=== PATIENT | female | born 1965 | race Asian ===

== ENCOUNTER 2016-12-14 14:47 | Emergency (ER) | payer BC, OTHER ==
[~2016-12-14 14:47] MED LIST: Iopamidol 370 76% 125 ML VIAL FS ONE
[2016-12-14 14:57] LABS: #Lymphocytes 2.9 thou/uL (1.20-3.40); #Monocytes 0.7 thou/uL (0.11-0.59); #Neutrophils 7.9 thou/uL (1.40-6.50); %Basophils 0.4 % (0.0-1.0); %Eosinophils 0.4 % (0.0-10.0); %Lymphocytes 25.1 % (21.0-51.0); %Monocytes 6.3 % (0.0-10.0); %Neutrophils 67.9 % (42.0-75.0); Hemoglobin 14.5 g/dL (12.0-16.0); Mean Corpuscular HGB CONC 32.9 g/dL (32.0-36.0); Mean Corpuscular Hemoglobin 29.8 pg (27.0-31.0); Mean Corpuscular Volume 90.5 fl (81.0-99.0); Mean Platelet Volume 7.6 fL (7.4-10.4); Platelet Count 312 thou/uL (130-400); RBC Distribution Width 11.4 % (11.5-14.5); Red Blood Cell (RBC) Count 4.88 mill/uL (4.20-5.40); White Blood Cell (WBC) Count 11.7 thou/uL (4.8-10.8)
[2016-12-14 15:00] LABS: PTT 31.5 SEC (22.9-36.1); Prothrombin Time 13.6 SEC (12.0-14.7)
[2016-12-14 15:11] LABS: ALT (SGPT) 60 U/L (8-55); AST (SGOT) 70 U/L (5-34); Albumin 4.1 g/dL (3.5-5.0); Alkaline Phosphatase 61 U/L (40-150); Anion Gap 12 mmol/L (10-20); BUN (Urea Nitrogen) 22 mg/dL (9.8-20.1); Bilirubin, Total 0.3 mg/dL (0.2-1.2); Calc. Creatinine Clearance 0 mL/min (70-130); Calcium 8.9 mg/dL (7.8-10.44); Carbon Dioxide 25 mmol/L (22-29); Chloride 106 mmol/L (98-107); Estimated GFR-MDRD 88; Globulin 3.7 g/dL (2.4-3.5); Glucose 120 mg/dL (70-105); Potassium 3.8 mmol/L (3.5-5.1); Protein, Total 7.8 g/dL (6.0-8.3); Sodium 139 mmol/L (136-145)
[2016-12-14] MEDS ORDERED: Diazepam 5 MG TAB ONE (15:18)
[2016-12-14] MEDS ORDERED: Adacel (T-DAP) 0.5 ML VIAL ONE (15:18)
[2016-12-14] MEDS ORDERED: HYDROcodone/Acetaminophen 10/325 mg Tablet ONE (15:18)
[2016-12-14] MEDS ORDERED: Ketorolac Tromethamine 30 MG/ML VIAL ONE (15:18)
[2016-12-14] MEDS ORDERED: Morphine 10 MG/ML VIAL ONE (16:12)
[2016-12-14] MEDS ORDERED: Triple Antibiotic Oint 1 GM Packet ONE (16:12)
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
== END 2016-12-14 18:20 | disposition home or self-care (01) ==
LOC: MADERS 14:47
DX: S52.501A Unspecified fracture of the lower end of right radius, initial encounter for closed fracture (principal); S52.601A Unspecified fracture of lower end of right ulna, initial encounter for closed fracture; S32.029A Unspecified fracture of second lumbar vertebra, initial encounter for closed fracture; V89.2XXA Person injured in unspecified motor-vehicle accident, traffic, initial encounter
CPT/HCPCS: 36415; 70450; 71260; 72125; 74177; 80053; 83690; 85025; 85610; 85730; 90471; 90715; 96374; 96375; 96376; G0390; J1885; J2270